=== PATIENT | female | born 1990 | race Caucasian/White ===

== ENCOUNTER 2018-03-29 14:12 | Inpatient (IN) | payer BC ==
[~2018-03-29] VITALS: Ht 167.6 cm; Wt 88.6 kg
[~2018-03-29 14:12] MED LIST: CLONAZEPAM1 MG PO; CYCLOBENZAPRINE10 MG PO; DIAZEPAM5 MG PO; GEODON80 MG PO; LAMOTRIGINE150 MG PO; LEVOTHYROXINE25 MCG PO; NOHOMEMEDS
[2018-03-29 15:33] LABS: HEMATOCRIT 40.3 % (36.0-46.0); HEMOGLOBIN 13.7 G/DL (11.9-15.5); MCH 31.2 PG (29.0-34.0); MCV 91.8 FL (83-99); PLATELET COUNT 448 K/uL (156-360); RBC DIS.WIDTH-CV 12.5 % (11.8-14.6); RBC DIS.WIDTH-SD 42.1 % (39-53); RED BLOOD COUNT 4.39 M/uL (3.80-5.20); WHITE BLOOD COUNT 13.7 K/uL (4.1-10.2)
[2018-03-29 15:43] LABS: CHLORIDE 101 mEq/L (99-109); POTASSIUM 3.4 mEq/L (3.7-5.4); SODIUM 139 mEq/L (136-147)
[2018-03-29 15:45] LABS: GLUCOSE 91 mg/dL (70-99)
[2018-03-29 15:48] LABS: GFR ESTIMATE (CALCULATED) > 59 mL/min/
[2018-03-29 15:50] LABS: UREA NITROGEN (BUN) 14 mg/dL (9-23)
[2018-03-29 15:52] LABS: ACETAMINOPHEN (TYLENOL) < 10 mcg/mL (10-30); SALICYLATE < 5.0 MG/DL (15-30)
[2018-03-29 15:58] LABS: QUANTITATIVE HCG < 4.0 MIU/ML
[2018-03-29 16:01] LABS: APPEARANCE CLOUDY ((CLEAR)); BILIRUBIN NEGATIVE; BLOOD MODERATE; COLOR YELLOW ((YELLOW)); GLUCOSE (STRIP) NEGATIVE; KETONES NEGATIVE; LEUKOCYTES SMALL; NITRITE NEGATIVE; PROTEIN (STRIP) NEGATIVE; SPECIFIC GRAVITY 1.015 (1.000-1.030); UROBILINOGEN 0.2 MG/DL (0.2-1.0)
[2018-03-29 16:14] LABS: AMPHETAMINE NEGATIVE (500 ng/mL); BARBITURATES NEGATIVE (200 ng/mL); BENZODIAZEPINES NEGATIVE (150 ng/mL); BUPRENORPHINE NEGATIVE (10 ng/mL); COCAINE PRESUMPTIVE POSITIVE (150 ng/mL); METHADONE NEGATIVE (200 ng/mL); METHAMPHETAMINE NEGATIVE (500 ng/mL); OPIATES (MORPHINE) NEGATIVE (100 ng/mL); OXYCODONE NEGATIVE (100 ng/mL); PHENCYCLIDINE NEGATIVE (25 ng/mL); PROPOXYPHENE NEGATIVE (300 ng/mL); THC CANNABINOIDS NEGATIVE (50 ng/mL); TRICYCLIC ANTIDEPRESSANTS NEGATIVE (300 ng/mL)
[2018-03-29 16:16] LABS: BACTERIA RARE /HPF; EPITHELIAL CELLS 4+ /HPF; MUCUS TRACE /LPF; RED BLOOD CELLS 0-5 /HPF (0-5); UCUL ADDED? YES
[2018-03-29] MEDS ORDERED: KLONOPIN0.5 M1 PO (17:32)
[2018-03-29] MEDS ORDERED: PROZAC20 MG PO (17:33)
[2018-03-29] MEDS ORDERED: ZYRTEC10 M3 PO (17:33)
[2018-03-29] MEDS ORDERED: KYLEENA1 EACH IY (17:33)
[2018-03-29] MEDS ORDERED: AMOXICILLIN875 MG PO (17:34)
[2018-03-29] MEDS ORDERED: VITAMIN D2000 UNIT PO (17:35)
[2018-03-29 18:42] VITALS: BP 126/85
[2018-03-30 07:54] VITALS: BP 01/59
[2018-03-30 16:13] VITALS: BP 101/59
[2018-03-31 08:16] VITALS: BP 91/49
[2018-03-31 09:00] VITALS: BP 107/55
[2018-03-31 12:27] VITALS: BP 107/55
[2018-03-31] MEDS ORDERED: DESYREL100 MG PO (14:52)
[2018-03-31] MEDS ORDERED: FLUOXETINE HCL20 MG PO (14:52)
[2018-03-31] MEDS ORDERED: LAMOTRIGINE100 MG PO (14:52)
[2018-03-31] MEDS ORDERED: BACTRIM,SEPT1 TABLET PO (14:52)
[2018-03-31 16:10] VITALS: BP 127/74
[2018-04-01 08:01] VITALS: BP 105/55
== END 2018-04-01 09:33 | disposition other institution (70) | DRG 885 ==
LOC: EME 14:12 → EDOF 16:52 → 1WEST 16:52 → ENRESERV 18:34 → 1WEST 18:35
PROVIDERS: Physician Assistant
DX: F31.81 Bipolar II disorder (principal); F41.1 Generalized anxiety disorder; F11.20 Opioid dependence, uncomplicated; F14.90 Cocaine use, unspecified, uncomplicated; R45.851 Suicidal ideations; N39.0 Urinary tract infection, site not specified; F17.200 Nicotine dependence, unspecified, uncomplicated
CPT/HCPCS: 80048; 81003; 84702; 84999; 85027; 87077; 87086; 87186; 90839; 99281; 99284; G0480; Q0177